=== PATIENT | female | born 1995 ===

== ENCOUNTER 2017-09-19 19:08 | Emergency (ER) | payer MEDICAID ==
[2017-09-19 19:26] VITALS: TEMP 98.6
--- NOTE | 2017-09-19 19:58 | ED PDOC ---
Arrival/HPI - General Chief Complaint: ENT Problem Time Seen by Provider: 09/19/17 19:54 Historian: Patient - History of Present Illness Narrative History of Present Illness (Text): 09/19/17 19:55 This 22 yo female who denies pmh, presents to this ED c/o right ear drainage since early today. Patient stated she attempted to clean right ear with Q-tips , but she suddenly notice right ear bleeding. Patient denies other somatic complains. Time/Duration: Other (see hpi) Context: Home Past Medical History - Provider Review Nursing Documentation Reviewed: Yes - Psychiatric Hx Psychophysiologic Disorder: No Hx Substance Use: No Family/Social History - Physician Review Nursing Documentation Reviewed: Yes Family/Social History: Other (noncontributory) Smoking Status: Heavy Smoker > 10 Cigarettes Daily Hx Alcohol Use: No Hx Substance Use: No Allergies/Home Meds Allergies/Adverse Reactions: Allergies No Known Allergies Allergy (Verified 09/19/17 19:21) Home Medications: Home Meds Medication Instructions Recorded Confirmed No Known Home Med 09/19/17 09/19/17 Review of Systems - Review of Systems Constitutional: Normal. absent: Fatigue, Weight Change, Fevers, Night Sweats Eyes: Normal ENT: Other (see hpi) Respiratory: Normal Cardiovascular: Normal Gastrointestinal: Normal Genitourinary Female: Normal Musculoskeletal: Normal Skin: Normal Neurological: Normal Endocrine: Normal Hemo/Lymphatic: Normal Psychiatric: Normal Physical Exam Vital Signs Temp Pulse Resp BP Pulse Ox 09/19/17 19:21 98.6 F 72 16 96/50 L 99 Temperature: Afebrile Blood Pressure: Normal Pulse: Regular Respiratory Rate: Normal Appearance: Positive for: Well-Appearing, Non-Toxic, Comfortable Pain Distress: None Mental Status: Positive for: Alert and Oriented X 3 - Systems Exam Head: Present: Atraumatic, Normocephalic Pupils: Present: PERRL Extroacular Muscles: Present: EOMI Conjunctiva: Present: Normal Ears: Present: NORMAL TM, Other ((+) small area posterior canal with superficial abrasion. No actively bleeding. No discharge. Left ear is normal) . No: Erythema, TM Bulging, Fluid, TM Perf Mouth: Present: Moist Mucous Membranes Pharnyx: Present: Normal. No: ERYTHEMA, EXUDATE, TONSILS ENLARGED Neck: Present: Normal Range of Motion Respiratory/Chest: Present: Clear to Auscultation, Good Air Exchange. No: Respiratory Distress, Accessory Muscle Use, Wheezes, Retracting, Rhonchi Cardiovascular: Present: Regular Rate and Rhythm, Normal S1, S2. No: Murmurs Upper Extremity: Present: Normal Inspection, Normal ROM Lower Extremity: Present: Normal Inspection, Normal ROM Neurological: Present: GCS=15, CN II-XII Intact, Speech Normal, Motor Func Grossly Intact, Normal Sensory Function, Normal Cerebellar Funct, Gait Normal Skin: Present: Warm, Dry, Normal Color. No: Rashes Psychiatric: Present: Alert, Oriented x 3, Normal Insight, Normal Concentration Medical Decision Making ED Course and Treatment: 09/19/17 20:03 Re-evaluation. Patient feels better. Discussed results and plan with patient who expresses understanding. All questions answered and there is agreement with the plan to discharge home with instructions. Patient stable for discharge. Return if symptoms persist or worsen Patient was recommended not to use Q-tips. To return to emergency if ear drainage or bleeding returns. Re-evaluation Time: 20:03 Reassessment Condition: Re-examined, Improved Disposition/Present on Arrival - Present on Arrival Any Indicators Present on Arrival: No History of DVT/PE: No History of Uncontrolled Diabetes: No Urinary Catheter: No History of Decub. Ulcer: No History Surgical Site Infection Following: None - Disposition Have Diagnosis and Disposition been Completed?: Yes Diagnosis: Otitis externa, Ear canal abrasion Disposition: HOME/ ROUTINE Disposition Time: 20:04 Patient Plan: Discharge Condition: GOOD Discharge Instructions (ExitCare): Outer Ear Infection (DC) Additional Instructions: Llama a tu doctor para seguimiento medico. Gutierrez 4 gotas de el antibiotico en tu oido derecho dos veces al [place] por siete avina. regresa si sangramiento or pus retorna. Nunca utilize Q-tips u otro instrumento! Prescriptions: Ciprofloxacin/Dexamethasone [Ciprodex 0.3%-0.1% 7.5 Ml] 4 drop AD BID #1 bottle Referrals: [facility] [Outside] - Follow up with primary [facility] [Outside] - Follow up with primary
[2017-09-19] MEDS ORDERED: Ciprofloxacin/Dexamethasone OTIC SUSP AD STA (19:59)
[2017-09-19 20:40] VITALS: BP 101/83; PULSE 76; RESP 18; O2SAT 100
== END 2017-09-19 20:38 | disposition home or self-care (01) ==
LOC: ED 19:08
DX: H60.91 Unspecified otitis externa, right ear (principal); S00.411A Abrasion of right ear, initial encounter; X58.XXXA Exposure to other specified factors, initial encounter; Y93.E8 Activity, other personal hygiene; Y92.89 Other specified places as the place of occurrence of the external cause